=== PATIENT | female | born 1930 | race Two or more races ===

== ENCOUNTER 2016-05-05 11:34 | Emergency (ER) | payer MEDICAID ==
[2016-05-05 12:01] VITALS: RESP 16
[2016-05-05 13:10] VITALS: BP 130/97; PULSE 76; TEMP 97.9; O2SAT 94
--- NOTE | 2016-05-05 13:21 | UCPHY ---
H & P Time Seen by Provider: 05/05/16 12:54 Patient Type: Established HPI/ROS: 85-year-old female presents with family for complaint of nose bleed x2 last night, patient is on Xarelto, patient wears nasal cannula oxygen around the clock. No bleeding of present. Review of systems As per HPI-epistaxis General no fever no chills no weakness HEENT no eye pain no eye discharge. No eye redness, no sore throat Respiratory no cough, no shortness of breath Cardiac no chest pain, no peripheral edema GI no abdominal pain, no diarrhea, no constipation, no nausea, no vomiting no flank pain, no hematuria, no dysuria Musculoskeletal no myalgias, no joint pain Heme no easy bruising, no easy bleeding Endo no polyuria, no polydipsia Skin no rashes, no pruritus Neuro no syncope, no dizziness, no headaches Psych is no suicidal ideation, no homicidal ideation Past Medical/Surgical History: CHF Atrial fibrillation On oxygen at home, 31/08 Social History: Lives with family Smoking Status: Never smoked Physical Exam: Elderly female in no acute distress nontoxic appearance afebrile, no active bleeding Atraumatic normocephalic Extraocular muscles intact, anicteric Naris right nares patent no evidence of bleeding Left nares erythematous friable appearing septum with small clot, no active bleeding Oxygen via nasal cannula OP negative for blood Lungs clear to auscultation Extremities no cyanosis clubbing edema Constitutional: Initial Vital Signs Temperature (C) 36.7 C 05/05/16 12:00 Heart Rate 81 05/05/16 12:00 Respiratory Rate 16 05/05/16 12:00 Blood Pressure 131/87 H 05/05/16 12:00 O2 Sat (%) 92 05/05/16 12:00 O2 Delivery Mode Nasal Cannula O2 (L/minute) 3 Allergies/Adverse Reactions: No Known Allergies Allergy (Verified 05/05/16 12:01) Home Medications: Medication Instructions Recorded LASIX 08/05/09 Bystolic 5 mg (RX) 05/01/14 Lisinopril [Zestril 2.5 mg (*)] 05/01/14 Rivaroxaban [Xarelto 10mg (RX)] 05/01/14 traZODONE 12/22/14 Amlodipine Besylate 05/05/16 Medical Decision Making ED Course/Re-evaluation: Patient seen and evaluated for nose bleed last night, not currently bleeding Vital signs stable Impression Anterior epistaxis, left naris Plan Discharge home Advise humidifier Advise daily moisturizer to nares Follow-up PCP Departure - Departure Disposition: Home, Routine, Self-Care Clinical Impression: Anterior epistaxis Condition: Good Instructions: Nosebleed (ED) Additional Instructions: Use humidifier in room if possible Apply moisturizer to nose several times a day Referrals: Tien Medrano DO [Primary Care Provider] - As per Instructions - PQRS PQRS Measurement: na
== END 2016-05-05 13:28 | disposition home or self-care (01) ==
LOC: CED 11:34
DX: R04.0 Epistaxis (principal); Z79.01 Long term (current) use of anticoagulants; Z99.81 Dependence on supplemental oxygen; I48.91 Unspecified atrial fibrillation; I50.9 Heart failure, unspecified
CPT/HCPCS: 99213-PO; G0463-PO